=== PATIENT | male | born 1980 | race Caucasian/White ===

== ENCOUNTER 2021-02-13 09:13 | Outpatient (CLI) | payer OTHER, SELFPAY ==
[2021-02-13 11:11] LABS: SARS-CoV-2 RNA PCR Negative (Negative)
== END 2021-02-13 09:14 | disposition home or self-care (01) ==
LOC: CHSLAB 09:20
PROVIDERS: PCP Internal Medicine; Visit Provider Internal Medicine
DX: Z20.822 Contact with and (suspected) exposure to COVID-19 (principal)
CPT/HCPCS: C9803; U0003; U0005

== ENCOUNTER 2021-04-22 16:21 | Outpatient (CLI) | payer OTHER, SELFPAY ==
--- NOTE | ~2021-04-22 | XR_ITS ---
XR chest 2V DATE: 04/22/2021 16:42 INDICATION: Chest pain, palpitations TECHNIQUE: PA and lateral views COMPARISON: None FINDINGS: Normal heart size. No hilar or mediastinal enlargement. There is bilateral hyperinflation . No pulmonary infiltrate or consolidation, pulmonary vascular congestion or pleural effusion or pne umothorax. Diffuse osteopenia. There is levoscoliosis of the thoracic spine . Right cervical rib. IMPRESSION: Bilateral hyperinflation; no active pulmonary disease Reviewed, dictated and finalized at location B.
[2021-04-22 16:46] LABS: D Dimer 0.46 mg/L (0.19-0.50)
[2021-04-22 17:00] LABS: Alanine Aminotransferase 25 U/L (16-63); Albumin Level 4.2 g/dL (3.4-5.0); Alkaline Phosphatase 82 U/L (46-116); Amylase 113 U/L (25-115); Anion Gap 10 mmol/L (8-16); Aspartate Amino Transferase 14 U/L (15-37); Bilirubin,Total 0.7 mg/dL (0.00-1.00); Blood Urea Nitrogen 10 mg/dL (7-18); Calcium 8.9 mg/dL (8.5-10.1); Carbon Dioxide 29 mmol/L (21-32); Chloride 100 mmol/L (98-108); Creatine Kinase 71 U/L (39-308); Estimated Glomerular Filt Rate > 60; Free T4 Free Thyroxine 1.05 ng/dL (0.76-1.46); Glucose 98 mg/dL (70-99); Lipase 488 U/L (73-393); Osmolality Calculated 287 mOsm/kg (285-295); Potassium 4.3 mmol/L (3.5-5.1); Sodium 139 mmol/L (136-145); Thyroid Stimulating Hormone 2.71 uIU/mL (0.36-3.74); Total Protein 7.8 g/dL (6.4-8.2); Troponin I 5.5 ng/L (0.00-60.4)
== END 2021-04-22 16:22 | disposition home or self-care (01) ==
LOC: CHSIMG 16:23
PROVIDERS: PCP Internal Medicine; Visit Provider Nurse Practitioner Family
DX: R07.9 Chest pain, unspecified (principal); R94.31 Abnormal electrocardiogram [ECG] [EKG]
CPT/HCPCS: 36415; 71046; 80053; 82150; 82550; 82553; 83690; 84439; 84443; 84484; 85380

== ENCOUNTER 2021-05-02 07:48 | Outpatient (CLI) | payer OTHER, SELFPAY ==
[2021-05-02 09:05] LABS: Alanine Aminotransferase 24 U/L (16-63); Albumin Level 4.1 g/dL (3.4-5.0); Alkaline Phosphatase 70 U/L (46-116); Amylase 63 U/L (25-115); Anion Gap 8 mmol/L (8-16); Aspartate Amino Transferase 14 U/L (15-37); Bilirubin,Total 0.8 mg/dL (0.00-1.00); Blood Urea Nitrogen 9 mg/dL (7-18); Calcium 8.8 mg/dL (8.5-10.1); Carbon Dioxide 29 mmol/L (21-32); Chloride 105 mmol/L (98-108); Estimated Glomerular Filt Rate > 60; Glucose 85 mg/dL (70-99); Lipase 91 U/L (73-393); Osmolality Calculated 291 mOsm/kg (285-295); Potassium 4.7 mmol/L (3.5-5.1); Sodium 142 mmol/L (136-145); Total Protein 7.3 g/dL (6.4-8.2)
== END 2021-05-02 07:49 | disposition home or self-care (01) ==
LOC: CHSCARD 07:50
PROVIDERS: PCP Internal Medicine; Visit Provider Internal Medicine
DX: R94.5 Abnormal results of liver function studies (principal)
CPT/HCPCS: 36415; 80053; 82150; 83690; 94060; 94726; 94729

== ENCOUNTER 2021-05-22 10:06 | Outpatient (CLI) | payer OTHER, SELFPAY ==
--- NOTE | 2021-05-22 11:40 | ECHO_ITS ---
Patient Info Name: Beny Crabtree Age: 40 years : 1980 Gender: Male Ht: 70 in Wt: 198 lbs BSA: 2.12 m2 HR: 60 bpm BP: 14 / 80 mmHg Technical Quality: Fair Exam Date: 05/22/2021 11:22 AM Exam Location: [facility] Patient Status: Outpatient Admit Date: 05/22/2021 Staff Ordering Physician: Krunal Patel MD Lockstitch Waistband Setter: Rashi Felipe RDCS, RT STEPHANIE Attending Provider: Krunal Patel MD Exam Type: CA echo doppler color flow Study Info Indications R94.31 - Abnormal electrocardiogram ECG EKG Complete two-dimensional, color flow and Doppler transthoracic echocardiogram is performed. Summary 1. Complete two-dimensional, color flow and Doppler transthoracic echocardiogram is performed. 2. Left ventricular chamber dimension is normal. 3. Left ventricular systolic function is normal, estimated at 60-65%. 4. The left ventricular diastolic function is grade I diastolic dysfunction. 5. E/e' 12 is mildly elevated. 6. The aortic root size at the sinus of Valsalva is borderline dilated at 4.0 cm. Left Ventricle E/e' 12 is mildly elevated. Left ventricular chamber dimension is normal. Left ventricular systolic function is normal, estimated at 60-65%. The left ventricular diastolic function is grade I diastolic dysfunction. Right Ventricle Right ventricular systolic function is normal and with normal TAPSE 3.0 cm. Right ventricular chamber dimension is normal. Left Atria Left atrial chamber dimension is normal. Right Atria Right atrial chamber dimension is normal. Aortic Valve The aortic valve is trileaflet. There is no aortic valve stenosis. There is no aortic valve regurgitation. Pulmonic Valve There is no pulmonic regurgitation. Mitral Valve There is no mitral valve stenosis. There is no mitral valve regurgitation. Tricuspid Valve There is no tricuspid valve regurgitation. Pericardium/Pleural There is no pericardial effusion. Inferior Vena Cava Normal inferior vena cava with >50% collapse upon inspiration consistent with normal right atrial pressure, 5 mmHg. Aorta The aortic root size at the sinus of Valsalva is borderline dilated at 4.0 cm. Left Ventricular Outflow Tract Name Value Normal LVOT 2D LVOT Diameter 2.3 cm LVOT Doppler LVOT Peak Velocity 110 cm/s LVOT Peak Gradient 4 mmHg LVOT Mean Gradient 2 mmHg LVOT VTI 28 cm LVOT VTI/AV VTI Ratio 1.1 LVOT Stroke Volume 112 ml Mitral Valve Name Value Normal MV Doppler MV Decel [place] 285 cm/s2 MV PHT 104 ms MV Area (PHT) 2.1 cm2 4.0-5.0 MV Diastolic Function
== END 2021-05-22 10:07 | disposition home or self-care (01) ==
PROVIDERS: PCP Internal Medicine; Visit Provider Internal Medicine
DX: R94.31 Abnormal electrocardiogram [ECG] [EKG] (principal)
CPT/HCPCS: 93306

== ENCOUNTER 2021-06-23 09:09 | Outpatient (CLI) | payer OTHER, SELFPAY ==
--- NOTE | ~2021-06-23 | NM_ITS ---
EXAMINATION: NM stress w perf spect multi DATE: 06/23/2021 11:49 INDICATION: Chest pain TECHNIQUE: Rest images were obtained following intravenous administration of 9.8 mCi Tc99m tetrofosmi n (Jigsaw). The patient performed an exercise activity. At peak exercise, 30.6 mCi Tc99m tetrofosmin (Myoview) was administered intravenously, and stress images were obtained in supine position. Additi onal post stress images were obtained in prone position. Data was reconstructed into short axis and h orizontal and vertical long axis SPECT images. Gated SPECT images were also obtained. COMPARISON: None. FINDINGS: There is normal left ventricular perfusion without definite evidence of reversible or fixed perfusion abnormality to suggest ischemia or infarction. There is normal left ventricular chamber size, wall motion and ejection fraction. Left ventricular ejection fraction measures >70%. IMPRESSION: 1. Normal myocardial perfusion at rest and during stress. 2. Left ventricular ejection fraction measuring >70%. Reviewed, dictated and finalized at location A. SCRUB TECH
--- NOTE | 2021-06-23 09:16 | EST_ITS ---
Patient Info Name: Beny Crabtree Age: 40 years : 1980 Gender: Male Ht: 72 in Wt: 147 lbs BSA: 1.83 m2 HR: 67 bpm BP: 124 / 93 mmHg Heart Rhythm: Sinus Rhythm Exam Date: 06/23/2021 10:31 AM Exam Location: [facility] Patient Status: Outpatient Admit Date: 06/23/2021 Staff Ordering Physician: Rodriguez Carrillo DO Attending Provider: Rodriguez Carrillo DO Exercise Technologist: Corrie Lu CT Exercise Physician: Rodriguez Carrillo DO Exam Type: CA stress test treadmill w NM Study Info Indications R07.9 - Chest pain, unspecified A nuclear stress test was performed. Summary 1. 1. Negative Miko exercise stress test for ischemic ST changes by ECG criteria. 2. 2. Good functional capacity, achieving 12 METs of workload. 3. 3. Appropriate HR response with exercise. 4. 4. Appropriate HR recovery at 1 minute post exercise. 5. 5. Nuclear scan to follow and will be reported separately. Please correlate with it. Protocol: Miko Stress ECG Details Stage: REST Duration (min): 0 min : 53 sec Speed (mph): 0.0 Grade (%): 0 HR (bpm): 68 SBP (mmHg): --- DBP (mmHg): --- METS: --- Stage: REST Duration (min): 9 min : 8 sec Speed (mph): 0.0 Grade (%): 0 HR (bpm): 69 SBP (mmHg): --- DBP (mmHg): --- METS: --- Stage: STAGE 1 Duration (min): 1 min : 0 sec Speed (mph): 1.7 Grade (%): 10 HR (bpm): 102 SBP (mmHg): --- DBP (mmHg): --- METS: --- Stage: STAGE 1 Duration (min): 2 min : 0 sec Speed (mph): 1.7 Grade (%): 10 HR (bpm): 101 SBP (mmHg): --- DBP (mmHg): --- METS: --- Stage: STAGE 1 Duration (min): 3 min : 0 sec Speed (mph): 1.7 Grade (%): 10 HR (bpm): 106 SBP (mmHg): 130 DBP (mmHg): 77 METS: --- Stage: STAGE 2 Duration (min): 1 min : 0 sec Speed (mph): 2.5 Grade (%): 12 HR (bpm): 115 SBP (mmHg): 130 DBP (mmHg): 77 METS: --- Stage: STAGE 2 Duration (min): 2 min : 0 sec Speed (mph): 2.5 Grade (%): 12 HR (bpm): 126 SBP (mmHg): 130 DBP (mmHg): 77 METS: --- Stage: STAGE 2 Duration (min): 3 min : 0 sec Speed (mph): 2.5 Grade (%): 12 HR (bpm): 131 SBP (mmHg): 132 DBP (mmHg): 89 METS: --- Stage: STAGE 3 Duration (min): 1 min : 0 sec Speed (mph): 3.4 Grade (%): 14 HR (bpm): 137 SBP (mmHg): 132 DBP (mmHg): 89 METS: --- Stage: STAGE 3 Duration (min): 2 min : 0 sec Speed (mph): 3.4 Grade (%): 14 HR (bpm): 144 SBP (mmHg): 132 DBP (mmHg): 89 METS: --- Stage: STAGE 3 Duration (min): 3 min : 0 sec Speed (mph): 3.4 Grade (%): 14 HR (bpm): 151 SBP (mmHg): 202 DBP (mmHg): 80 METS: --- Stage: STAGE 4 Duration (min): 1 min : 0 sec Speed (mph): 4.2 Grade (%): 16 HR (bpm): 163 SBP (mmHg): 202 DBP (mmHg): 80 METS: ---
== END 2021-06-23 09:10 | disposition home or self-care (01) ==
LOC: ANHCARD 09:14
PROVIDERS: PCP Internal Medicine; Visit Provider Internal Medicine Cardiovascular Disease
DX: R07.9 Chest pain, unspecified (principal)
CPT/HCPCS: 78452; 93017; A9502

== ENCOUNTER 2022-02-18 11:24 | Outpatient (CLI) | payer OTHER, SELFPAY ==
--- NOTE | ~2022-02-18 | XR_ITS ---
EXAM: XR knee LT 3V DATE: 02/18/2022 11:49 HISTORY: GENERAL KNEE PAIN,H/O SURGERY 2005 . COMPARISON: None available. FINDINGS: Decreased mineralization. No fracture or dislocation. No lytic or blastic lesion. Joint sp aces are maintained. No erosion or periosteal change. Small left knee joint effusion. Soft tissues wi thin normal limits. IMPRESSION: No acute osseous finding in the left knee. Reviewed, dictated and finalized at location K.
--- NOTE | ~2022-02-18 | XR_ITS ---
EXAM: XR shoulder LT min 2V DATE: 02/18/2022 11:49 HISTORY: GENERAL LT SHOULDER PAIN,H/O HEAVY WEIGHT LIFTING . COMPARISON: None available. FINDINGS: Normal mineralization. No fracture or dislocation. No lytic or blastic lesion. Joint space s are maintained. No erosion or periosteal change. Soft tissues within normal limits. IMPRESSION: Normal left shoulder radiograph findings. Reviewed, dictated and finalized at location K.
== END 2022-02-18 11:25 | disposition home or self-care (01) ==
LOC: CHSIMG 11:27
PROVIDERS: PCP Internal Medicine; Visit Provider Internal Medicine
DX: M25.512 Pain in left shoulder (principal); M25.562 Pain in left knee
CPT/HCPCS: 73030; 73562

== ENCOUNTER 2022-05-13 13:37 | Outpatient (CLI) | payer OTHER, SELFPAY ==
--- NOTE | ~2022-05-13 | XR_ITS ---
EXAM: XR foot RT min 3V DATE: 05/13/2022 13:55 HISTORY: RIGHT 2ND TOE PAIN SWELLING . COMPARISON: None available. FINDINGS: Normal mineralization. No fracture or dislocation. No lytic or blastic lesion. Joint space s are maintained. No erosion or periosteal change. Soft tissues within normal limits. IMPRESSION: No acute osseous finding in the right foot. Reviewed, dictated and finalized at location K.
== END 2022-05-13 13:38 | disposition home or self-care (01) ==
LOC: CHSIMG 13:39
PROVIDERS: PCP Internal Medicine; Visit Provider Internal Medicine
DX: M79.674 Pain in right toe(s) (principal); M79.89 Other specified soft tissue disorders
CPT/HCPCS: 73630

== ENCOUNTER 2022-11-09 16:46 | Outpatient (RCR) | payer OTHER, SELFPAY ==
--- NOTE | 2022-11-09 17:45 | PTOPEVAL1 ---
Assessment and note entered by July Stephen DPT Evaluation Information Assessment Status Evaluation Diagnosis L knee pain Onset 11/04/22 Subjective Information Patient report L knee pain that has increase within the last 2 years. He does report a patellar dislocation ~17 years ago and had surgery to relocate and secure. Pain is located at the medial patella. Patient reports that navigating stairs and stepping up into the truck/camper increase his pain the most. 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 Reported Pain Level Pain Score 3: Self Report Assessment PT Clinical Summary Patient is a 41 year old male who presents to PT with L knee pain. He demonstrates decreased L LE strength, impaired gait, and increased pain impairing his ability to ambulate and navigate steps. He would benefit from skilled PT to address impairments to return to PLOF. Plan of Care Interventions Electrical Stimulation,Gait Training,Hot Pack/Cold Pack,Manual Therapy,Neuro Re-education,Patient/ Caregiver Educati,Therapeutic Activities, Therapeutic Exercise PT Services Indicated Yes Treatment Frequency and 2x weekly for 12 visits Duration These treatments will address the objective and functional deficits as defined above. The patient will be advanced safely and appropriately in order for the patient to progress towards his/her prior level of function. Additional exercises will be introduced and as well as a comprehensive home exercise program upon discharge, if needed, ?to ensure carryover of functional gains achieved in the clinic. This treatment plan has been reviewed and agreement upon by the patient.
--- NOTE | 2022-12-16 17:37 | PTOPPROG ---
Assessment and note entered by JT File, PT Evaluation Information Assessment Status Progress Diagnosis L knee pain, BPPV Onset 11/04/22 Subjective Information addition of BPPV to POC today. patient had an acute episode during his last therapy session. he reports having a few bouts in the past, but nothing as serious. he is on meclizine now and reports no symptoms since wednesday. he reports the L knee feels beter. he continues to have pain in the L knee most with stairs. Assessment PT Clinical Summary mr. miranda presents to skilled PT for his 10th skilled visit for his L knee, and to add a diagnosis of BPPV. he presents with no nystagmus or symptoms of BPPV today. he was educated to keep using meclizine and we will continue to monitor in PT. he is progressing with his L knee therapy. he displays full mobility and strength, but continues to have pain and difficulty with stairs. he would do well to continue skilled PT per his initial POC for the L knee. [ End ] Plan of Care Interventions Electrical Stimulation,Gait Training,Hot Pack/Cold Pack,Manual Therapy,Neuro Re-education,Patient/ Caregiver Educati,Therapeutic Activities, Therapeutic Exercise PT Services Indicated Yes Treatment Frequency and continue skilled PT x2 more visits per initial POC Duration These treatments will address the objective and functional deficits as defined above. The patient will be advanced safely and appropriately in order for the patient to progress towards his/her prior level of function. Additional exercises will be introduced and as well as a comprehensive home exercise program upon discharge, if needed, ?to ensure carryover of functional gains achieved in the clinic. This treatment plan has been reviewed and agreement upon by the patient.
--- NOTE | 2023-01-13 17:32 | PTOPDC ---
Assessment and note entered by JT File, PT Evaluation Information Assessment Status Discharge Diagnosis L knee pain, BPPV Onset 11/04/22 Subjective Information patient reports he has not taken meclizine in nearly 2 weeks. he reports he has had no vertigo or dizziness in that time. he believes he is ready for DC from therapy today. Reported Pain Level Pain Score 0: Self Report Assessment PT Clinical Summary mr. miranda presents to skilled PT for his 13th skilled therapy visit. he has no pain in the L knee today, and no longer has any vertigo/ dizziness symptoms. he has met all goals for skilled PT. he will DC skilled therapy and continue with exercises for knee strength/ stability at home independent. Plan of Care PT Services Indicated Yes
== END 2023-01-04 19:00 | disposition home or self-care (01) ==
LOC: CHSPT 16:46
PROVIDERS: PCP Internal Medicine; Visit Provider Internal Medicine
DX: M25.511 Pain in right shoulder (principal); M25.562 Pain in left knee
CPT/HCPCS: 95992; 97110; 97140; 97161; 97530

== ENCOUNTER 2022-12-09 17:54 | Emergency (ER) | payer OTHER, SELFPAY ==
[2022-12-09 18:02] VITALS: BP 150/89; PULSE 78; RESP 20; TEMP 36.6; O2SAT 98
--- NOTE | 2022-12-09 18:05 | ED.GENADULT ---
HPI - General Adult General Chief complaint: Dizziness Stated complaint: vertigo Time Seen by Provider: 12/09/22 17:59 History of Present Illness HPI narrative: 42yo man history of ocular migraines, presents with sudden onset nausea, vomiting, and room spinning sensation while stretching in physical therapy rehabbing an old knee injury and osteoarthritis. Also complaining of mild to moderate headache. No numbness, weakness, speech difficulty. Has had similar episodes to this before. No hearing loss or tinnitus. Related Data Home Medications Medication Instructions Recorded Confirmed buspirone 15 mg tablet 15 mg PO BID 05/27/21 12/09/22 escitalopram oxalate 20 mg tablet 20 mg PO DAILY 05/27/21 12/09/22 verapamil 120 mg 24 hr 120 mg PO DAILY 07/28/21 12/09/22 capsule,extended release Allergies Allergy/AdvReac Type Severity Reaction Status Date / Time No Known Allergies Allergy Verified 12/09/22 18:33 Review of Systems Review of Systems: All systems reviewed & are unremarkable except as noted in HPI and below Constitutional: Constitutional: Denies chills and Denies fever(s) Eyes: Eyes: Denies change in vision ENT: Denies dysphagia, Reports vertigo and Reports dizziness Cardiovascular: Cardiovascular: Denies chest pain Respiratory: Respiratory: Denies cough and Denies dyspnea Gastrointestinal: Gastrointestinal: Denies abdominal pain Musculoskeletal: Musculoskeletal: Denies back pain Neurologic: Denies confusion, Reports vertigo, Denies syncope, Denies numbness and Denies weakness PMFSH Past Medical History Medical History Anxiety Depressed Hernia Knee cap dislocation, bilateral Family History Family History Father Hypertension Alcohol abuse Depression Anxiety Mother Depression Anxiety Hypertension Social History Social History Smoking status: Never smoker Alcohol intake: never Substance use: never Living arrangements: with family Occupation/Education: occupation Agree to blood products: Yes Exam Const: General: healthy appearing, no acute distress and alert Nutritional Appearance: well nourished Orientation/consciousness: patient oriented x3 HENMT: Head: normal to inspection and no contusions Eyes: Conjunctivae: conjunctivae normal EOM: EOMs intact bilaterally Other: fatigable horizontal nystagmus observed Neck: Neck: no meningeal signs Resp: Effort & Inspection: normal respiratory effort and not labored Cardio: Rate: regular rate GI: Inspection: non-distended Skin: General skin exam: normal color, no jaundice and no pallor Neuro: General: patient oriented x3 and moves all extremities Course Vital Signs Vital signs: Vital Signs Temperature 36.6 C 12/09/22 18:02 Pulse Rate 78 12/09/22 18:02 Respiratory Rate 20 12/09/22 18:02 Blood Pressure 150/89 H 12/09/22 18:02 Pulse Oximetry 98 12/09/22 18:02 Oxygen Delivery Room Air 12/09/22 18:02 Temperature 36.6 C 12/09/22 18:02 Pulse Rate 78 12/09/22 18:02 Respiratory Rate 20 12/09/22 18:02 Blood Pressure 150/89 H 12/09/22 18:02 Pulse Oximetry 98 12/09/22 18:02 Oxygen Delivery Room Air 12/09/22 18:02 Medical Decision Making MDM Narrative Medical decision making narrative: vertigo, nausea DDx benign positional vertigo, labyrinthitis or other inner ear dysfunction, atypical migraine; no evidence of acute stroke Vital Signs Vital Signs: Vital Signs Temperature 36.6 C 12/09/22 18:02 Pulse Rate 78 12/09/22 18:02 Respiratory Rate 20 12/09/22 18:02 Blood Pressure 150/89 H 12/09/22 18:02 Pulse Oximetry 98 12/09/22 18:02 Oxygen Delivery Room Air 12/09/22 18:02 Temperature 36.6 C 12/09/22 18:02 Pulse Rate 78 12/09/22 18:02 Respiratory Rate 20
[2022-12-09] MEDS: ONDANSETRON HCL ODT 4 MG TABLET 8 MG PO (18:08)
[2022-12-09] MEDS: KETOROLAC (*BKC) 60 MG/2 ML VIAL IM (18:08)
[2022-12-09] MEDS: diazePAM INJ (*CRX) 10 MG/2 ML SYRINGE 5 MG IM (18:08)
[2022-12-09 19:08] VITALS: BP 118/65; PULSE 65; RESP 20; TEMP 36.9; O2SAT 97
== END 2022-12-09 19:13 | disposition home or self-care (01) ==
LOC: CHSED 18:45
PROVIDERS: Emergency Provider Emergency Medicine; PCP Internal Medicine
DX: R42 Dizziness and giddiness (principal); F41.9 Anxiety disorder, unspecified; F32.A Depression, unspecified
CPT/HCPCS: 96372; 99284; A9270; J1885; J3360

== ENCOUNTER 2023-03-02 13:55 | Outpatient (CLI) | payer OTHER, SELFPAY ==
[2023-03-02 14:52] LABS: SARS-CoV-2 Ag Positive (Negative)
== END 2023-03-02 13:56 | disposition home or self-care (01) ==
LOC: CHSLAB 14:09
PROVIDERS: PCP Internal Medicine; Visit Provider Nurse Practitioner Family
DX: U07.1 COVID-19 (principal)
CPT/HCPCS: 87426; C9803

== ENCOUNTER 2023-05-13 08:23 | Outpatient (CLI) | payer OTHER, SELFPAY ==
--- NOTE | ~2023-05-13 | MR_ITS ---
EXAMINATION: MR brain/brain stem wo con DATE: 05/13/2023 08:57 INDICATION: Headache. Dizziness. TECHNIQUE: Magnetic resonance imaging (MRI) of the brain and brainstem was performed without intraven ous contrast. COMPARISON: None. FINDINGS: There is no intracranial hemorrhage, acute infarction, or abnormal intracranial mass lesion . The ventricles are normal in size. There is mild mucosal thickening in the paranasal sinuses. There is a mucous retention cyst in left maxillary sinus. The orbits are normal. The mastoid air cells are normal. IMPRESSION: 1. Normal brain. Reviewed, dictated and finalized at location E. IMPRESSION: 1. Normal brain.
== END 2023-05-13 08:24 | disposition home or self-care (01) ==
LOC: CHSIMG 08:26
PROVIDERS: PCP Internal Medicine; Visit Provider Internal Medicine
DX: R51.9 Headache, unspecified (principal); R42 Dizziness and giddiness
CPT/HCPCS: 70551

== ENCOUNTER 2025-05-11 08:26 | Outpatient (CLI) | payer OTHER, SELFPAY ==
--- OUTSIDE RECORDS SUMMARY | 2025-05-11 08:42 | XMS_ITS | Clinical Summary ---
Author Organization [facility] Address [facility] [place] [address] Care Team Providers Care Quality Improvement Engineer Name Role Phone Krunal Patel MD Primary Care Provider [phone] Allergies No known active allergies Medications escitalopram 20 MG tablet Take 20 mg by mouth daily. Active busPIRone 30 MG tablet Take 50 mg by mouth 2 (two) times daily. 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 Gender Identity Not on file Sexual Orientation Not on file Last Filed Vital Signs Vital Sign Reading Time Taken Comments Blood Pressure 126/80 03/02/2021 9:00 PM CDT Pulse 99 03/02/2021 7:44 PM CDT Temperature 36.3 C (97.4 F) 03/02/2021 7:44 PM CDT Respiratory Rate 16 03/02/2021 7:44 PM CDT Oxygen Saturation 100% 03/02/2021 9:00 PM CDT Inhaled Oxygen Concentration - - Weight 90.7 kg (200 lb) 03/02/2021 7:44 PM CDT Height 182.9 cm (6') 03/02/2021 7:44 PM CDT Body Mass Index 27.12 03/02/2021 7:44 PM CDT Plan of Treatment Health Maintenance Due Date Last Done Comments Annual Physical 1984 Hepatitis C 11/28/1999 Hepatitis B Vaccines (1 of 3 - 19+ 3-dose series) 2000 HPV Vaccines (1 - 3-dose SCDM series) 2008 COVID-19 Vaccine (3 - 2024- season) 2025 10/22/2020, 10/01/2020 Influenza Adult (#1) 2025 DTaP, Tdap and Td Vaccines (2 - Td or Tdap) 03/02/2031 03/02/2021, 11/10/1986, 05/28/1983, Additional history exists Hepatitis A Vaccines Aged Out No long er eligible based on patient's age to complete this topic Meningococcal B Vaccine Aged Out No l onger eligible based on patient's age to complete this topic Meningococcal Vaccine Aged Out No justen donn eligible based on patient's age to complete this topic Pneumococcal Vaccine: Pediatrics (0 to 5 Years) and At-Risk Patients (6 to 49 Years) Aged Out No longer eligible based on patient's age to complete this topic RSV Immunizations Under 20 Months Aged Out No longer eligible based on patient's age to complete this topic Insurance [facility] [employer] Care Teams Quality Improvement Engineer Relationship Specialty Start Date End Date Krunal Patel MD [address] [place] [address] PCP - General INTERNAL MEDICINE 03/02/21
[2025-05-11 08:48] LABS: Hematocrit 47.4 % (40.0-54.0); Hemoglobin 15.8 g/dL (14.0-18.0); Mean Corpuscular HGB Conc 33.3 g/dL (32-36); Mean Corpuscular Hemoglobin 28.2 pg (27.0-31.0); Mean Corpuscular Volume 84.5 fL (78.0-102.0); Platelet Count Result 249 K/mm3 (150-420); Red Blood Count 5.61 M/mm3 (4.70-6.10); White Blood Count 5.2 K/mm3 (4.8-10.8)
[2025-05-11 08:49] LABS: Add Urine Microscopic? NO; Appearance Urine Clear (Clear); Glucose Urine UA Negative (Negative); Leukocyte Esterase Ur Negative (Negative); Nitrate Urine Negative (Negative); Specific Grav Ur 1.020 (1.010-1.020)
[2025-05-11 09:33] LABS: Alanine Aminotransferase 15 U/L (6-50); Albumin Level 4.9 g/dL (3.5-5.1); Alkaline Phosphatase 63 U/L (38-126); Anion Gap 12 mmol/L (4-12); Aspartate Amino Transferase 25 U/L (17-59); Bilirubin,Total 1.1 mg/dL (0.2-1.3); Blood Urea Nitrogen 9 mg/dL (9-20); Calcium 9.6 mg/dL (8.4-10.2); Carbon Dioxide 23 mmol/L (22-30); Chloride 106 mmol/L (98-107); Cholesterol 165 mg/dL (0-200); Estimated Glomerular Filt Rate > 60; Glucose 93 mg/dL (65-110); HDL Direct 50 mg/dL; Osmolality Calculated 290 mOsm/kg (285-295); Potassium 5.0 mmol/L (3.4-5.0); Sodium 141 mmol/L (137-145); Total Protein 7.5 g/dL (6.3-8.2); Triglycerides 82 mg/dL (<150)
[2025-05-11 10:01] LABS: Thyroid Stimulating Hormone 1.730 uIU/mL (0.465-4.680)
== END 2025-05-11 08:27 | disposition home or self-care (01) ==
LOC: CHSLAB 08:29
PROVIDERS: PCP Internal Medicine; Visit Provider Internal Medicine
DX: Z00.00 Encounter for general adult medical examination without abnormal findings (principal); I10 Essential (primary) hypertension
CPT/HCPCS: 36415; 80053; 80061; 81003; 84443; 85027

== ENCOUNTER 2025-07-02 07:03 | Day surgery (SDC) | payer OTHER, SELFPAY ==
[2025-05-07 13:24] VITALS: BMI 28.0
[2025-06-20 13:34] VITALS: BMI 28.0
[2025-07-02 07:55] VITALS: BP 125/96; PULSE 72; RESP 18; TEMP 36; O2SAT 99
[2025-07-02] MEDS: LACTATED RINGERS 1,000 ML 150 ML IV CONT ×2 (08:05→09:46)
--- NOTE | 2025-07-02 08:21 | PM.IMHP2 ---
H&P: HPI History of Present Illness Date/Time: 07/02/25 08:21 Chief Complaint: hematochezia Narrative: 44 yo man presents for colonoscopy. He has had occasional bright red blood per rectum for the last year. Denies fam hx colon cancer. Denies rectal pain or other problems with bowels. Review of Systems Review of Systems: All systems reviewed & are unremarkable except as noted in HPI and below Constitutional: Constitutional: Denies chills, Denies fever(s), Denies headache(s) and Denies weight loss Eyes: Eyes: Denies change in vision ENT: Denies dizziness, Denies headache(s), Denies neck mass and Denies throat swelling Cardiovascular: Cardiovascular: Denies chest pain, Denies lightheadedness and Denies dyspnea Respiratory: Respiratory: Denies cough, Denies dyspnea and Denies wheezing Gastrointestinal: Gastrointestinal: Denies abdominal pain, Denies change in bowel habits, Denies nausea and Denies vomiting Genitourinary: Genitourinary: Denies hematuria and Denies dysuria Musculoskeletal: Musculoskeletal: Reports as per HPI Integumentary/Breasts: Skin/Breast: Reports as per HPI Neurologic: Denies dizziness and Denies headache(s) Allergic/Immunologic: Allergic/Immunologic: Denies throat swelling and Denies wheezing PMF Past Medical History Medical History Anxiety Depressed Hernia Knee cap dislocation, bilateral Family History Family History Father Hypertension Alcohol abuse Depression Anxiety Mother Depression Anxiety Hypertension Sibling Asthma Depression Grandparent Diabetes mellitus Hypertension Heart disease Social History Social History Smoking status: Never smoker Alcohol intake: current Substance use: never Substance use type: does not use Living arrangements: with family Occupation/Education: occupation Agree to blood products: Yes Meds Home Medications and Allergies Home Medications ?Medication ?Instructions ?Recorded ?Confirmed ?Type buspirone 15 mg tablet 15 mg PO BID 05/27/21 07/02/25 History escitalopram oxalate 20 mg tablet 20 mg PO DAILY 05/27/21 07/02/25 History verapamil 120 mg 24 hr 120 mg PO DAILY 07/28/21 07/02/25 History capsule,extended release meclizine 25 mg tablet 25 mg PO Q6H PRN vertigo/nausea 12/09/22 07/02/25 Rx #20 tabs multivitamin (One Daily 1 tablet PO DAILY 06/20/25 07/02/25 History Multivitamin tablet) Allergies Allergy/AdvReac Type Severity Reaction Status Date / Time milk Allergy Mild Unknown Verified 07/02/25 07:50 Vital Signs Vital Signs - 24 hr 07/02/25 07:55 Temperature 96.8 F L Pulse Rate 72 Respiratory Rate 18 Blood Pressure 125/96 H Pulse Oximetry 99 Oxygen Delivery Room Air Exam Const: General: no acute distress and alert Orientation/consciousness: patient oriented x3 HENMT: Head: normocephalic and atraumatic Ears: hearing grossly normal bilaterally Face/Nose/Sinus: Normal nares present Mouth: Yes Normal oral and palatal mucosa present Eyes: Periorbital: periorbital findings normal Sclera: sclerae normal EOM: EOMs intact bilaterally Neck: Neck: normal visual inspection, no lymphadenopathy and trachea midline Chest: Chest palpation & inspection: normal inspection of the chest Resp: Effort & Inspection: normal respiratory effort Auscultation: clear to auscultation bilaterally Cardio: Jugular venous distension: no JVD Rate: regular rate Rhythm: regular rhythm Heart sounds: S1 normal heart sound present and S2 normal heart sound present Peripheral pulses: Peripheral pulses 2+ throughout GI: Inspection: normal to inspection GI Palp: Yes Soft to palpation, No Tenderness to palpation present (GI), No Guarding due to palpation present (GI) and No Rebound tenderness present Percussion: Yes normal to percussion Auscultation: normal bowel sounds : General: Yes no CVA tenderness Back/Spine/Pelvis: Back: no CVA tenderness Neuro: General: patient oriented x3, no focal motor deficits and CN's II-XI intact bilaterally Cognition (Neuro): normal cognition Speech: normal speech Motor exam (neuro): 5/5 motor strength present throughout Extrem: General: capillary refill normal and no clubbing, cyanosis or edema Assessment and Plan Assessment and plan (1) Hematochezia: Code(s): K92.1 - Melena Status: Acute Assessment and Plan: I have recommended colonoscopy. I have discussed the procedure, risks, benefits, and alternatives. Questions were answered. Patient is agreeable to proceed.
--- NOTE | 2025-07-02 08:28 | WPDANESEPPF ---
Anes - Initial Pre Proc Eval Procedure: Operation Date: 07/02/25 09:00 Proposed Procedures p Diagnostic Colonoscopy - Kamran Kuhn DO Date/Time: 07/02/25 08:28 Surgeon: Kamran Kuhn DO Pre Op Diagnosis: Hematochezia Patient Data Age: 44 Gender: M Height: 1.83 m Weight: 93.85 kg Last Vital Signs Temp 96.8 F L 07/02/25 07:55 Pulse 72 07/02/25 07:55 Resp 18 07/02/25 07:55 BP 125/96 H 07/02/25 07:55 Pulse Ox 99 07/02/25 07:55 O2 Del Method Room Air 07/02/25 07:55 Allergies Allergy/AdvReac Type Severity Reaction Status Date / Time milk Allergy Mild Unknown Verified 07/02/25 07:50 Home Medications ?Medication ?Instructions ?Recorded ?Confirmed ?Type buspirone 15 mg tablet 15 mg PO BID 05/27/21 07/02/25 History escitalopram oxalate 20 mg tablet 20 mg PO DAILY 05/27/21 07/02/25 History verapamil 120 mg 24 hr 120 mg PO DAILY 07/28/21 07/02/25 History capsule,extended release meclizine 25 mg tablet 25 mg PO Q6H PRN vertigo/nausea 12/09/22 07/02/25 Rx #20 tabs multivitamin (One Daily 1 tablet PO DAILY 06/20/25 07/02/25 History Multivitamin tablet) Patient hx anesthesia problems: none Family hx anesthesia problems: none Results Review: All pre-operative results and documents have been reviewed as part of the pre-operative evaluation. [facility] Past Medical History Medical History Anxiety Depressed Hernia Knee cap dislocation, bilateral Family History Family History Father Hypertension Alcohol abuse Depression Anxiety Mother Depression Anxiety Hypertension Sibling Asthma Depression Grandparent Diabetes mellitus Hypertension Heart disease Social History Social History Smoking status: Never smoker Alcohol intake: current Substance use: never Substance use type: does not use Living arrangements: with family Occupation/Education: occupation Agree to blood products: Yes Anes - Eval Final PreProcedure Day of Procedure 07/02/25 08:28 Heart: regular rate and rhythm Lungs: clear to auscultation Airway: Mallampati scale class II Neurological: alert and oriented Last oral intake: >/= 8 hours ASA classification: II Anesthetic plan: proceed Anesthesia type and monitoring: general Results Review: All pre-operative results and documents have been reviewed as part of the pre-operative evaluation. Informed Consent: The patient's anesthetic plan and its attendant risks and benefits were discussed with the patient/family/POA. Questions were solicited and answers provided to the satisfaction of the patient/family/POA.
--- NOTE | 2025-07-02 09:05 | WPDANESPN ---
Anes - Prog Note Post-Op Date/Time: 07/02/25 09:05 Vital Signs: Last Vital Signs Temp 96.8 F L 07/02/25 07:55 Pulse 72 07/02/25 07:55 Resp 18 07/02/25 07:55 BP 125/96 H 07/02/25 07:55 Pulse Ox 99 07/02/25 07:55 O2 Del Method Room Air 07/02/25 07:55 Pain Score (VAS): no Patient Feedback: Patient satisfied with anesthetic care.
[2025-07-02 09:34] VITALS: BP 114/71; PULSE 75; RESP 14; O2SAT 92
[2025-07-02 09:44] VITALS: BP 113/73; PULSE 71; RESP 14; O2SAT 93
[2025-07-02 09:54] VITALS: BP 106/68; PULSE 77; RESP 14; O2SAT 98
== END 2025-07-02 10:15 | disposition home or self-care (01) ==
PROVIDERS: PCP Internal Medicine; Visit Provider Surgery
PROC: 0DJD8ZZ Inspection of Lower Intestinal Tract, Via Natural or Artificial Opening Endoscopic (ICD-10-PCS; CPT 45378; principal; 2025-07-02 09:00)
DX: K92.1 Melena (principal); K64.8 Other hemorrhoids
CPT/HCPCS: 45378